=== PATIENT | female | born 1995 | race Two or more races ===

== ENCOUNTER 2017-05-09 20:29 | Emergency (ER) | payer SELFPAY ==
[~2017-05-09] VITALS: Ht 154.9 cm; Wt 72.6 kg
--- NOTE | 2017-05-09 22:10 | Diagnostic Imaging Report ---
CHEST 2 VIEWS, Technique: CHEST 2 VIEWS Comparison: None Clinical history: Chest pain DISCUSSION: Unremarkable appearance of the heart, mediastinum, lungs and pleural spaces. IMPRESSION: No acute abnormality. Signed by: Dr Sally Vicente MD on 05/09/2017 10:06 PM
[2017-05-09 23:40] VITALS: BP 134/52
== END 2017-05-09 23:41 | disposition home or self-care (01) ==
LOC: ER 20:29
DX: M94.0 Chondrocostal junction syndrome [Tietze] (principal)
CPT/HCPCS: 71020; 93005; 99283

== ENCOUNTER 2018-04-18 10:37 | Inpatient (IN) | payer BC, OTHER ==
[~2018-04-18] VITALS: Ht 152.4 cm; Wt 92.2 kg
--- OUTSIDE RECORDS SUMMARY | 2018-04-18 10:39 | XMS REPORT ---
Author Author [facility] Address Unknown Phone Unavailable Care Team Providers Care Supervisory Civil Engineer Name Role Phone Mariangel SÁNCHEZ Unavailable Unavailable Problems This patient has no known problems. Allergies, Adverse Reactions, Alerts This patient has no known allergies or adverse reactions. Medications This patient has no known medications. Results Test Description Test Time Test Comments Text Results Atomic Results Result Comments CHEST 2 VIEWS [place] [address] Patient Name: LISA WEAVER MR #: [id number] : 1995 Age/Sex: 22/F Req #: [id number] Adm Physician: Ordered by: NICOL SÁNCHEZ MD Report #: [id number] Location: ER Room/Bed: Procedure: [id number] DX/CHEST 2 VIEWS Exam Date: 05/09/17 Exam Time: 2139 REPORT STATUS: Signed CHEST 2 VIEWS, Technique: CHEST 2 VIEWS Comparison: None Clinical history: Chest pain DISCUSSION: Unremarkable appearance of the heart, mediastinum, lungs and pleural spaces. IMPRESSION: No acute abnormality. Signed by: Dr Harini Vicente MD on 05/09/2017 10:06 PM Dictated By: HARINI VICENTE MD 05 Transcribed By: PARRIS on 05/09/172205 COPY TO: NICOL SÁNCHEZ MD
[2018-04-18] MEDS ORDERED: SODIUM CHLORIDE 0.9% 1000ML 1,000 ML IV STA (11:05)
[2018-04-18] MEDS ORDERED: KETOROLAC TROMETHAMINE 30 MG/ML VIAL IV NR (11:11)
[2018-04-18] MEDS ORDERED: METOCLOPRAMIDE HCL 10 MG/2ML VIAL IV NR (11:15)
[2018-04-18] MEDS ORDERED: DIPHENHYDRAMINE HCL INJ 50 MG/ML VIAL IV NR (11:15)
[2018-04-18 11:47] LABS: BASOPHILS % 0.3 % (0.0-1.0); EOSINOPHILS % 0.1 % (0.0-6.0); HEMOGLOBIN 12.2 g/dL (12.0-16.0); LYMPHOCYTES # (AUTO) 1.1 (1.0-3.2); LYMPHOCYTES % 7.6 % (18.0-39.1); MEAN CORPUSCULAR HEMOGLOBIN 26.7 pg (28-32); MONOCYTES # (AUTO) 1.2 (0.2-0.8); MONOCYTES % 8.1 % (4.4-11.3); NEUTROPHILS # (AUTO) 11.8 (2.1-6.9); NEUTROPHILS % 83.5 % (38.7-80.0); PLATELET COUNT 270 x10e3/uL (140-360); RED BLOOD COUNT 4.57 x10e6/uL (3.6-5.1); RED CELL DISTRIBUTION WIDTH 13.3 % (11.7-14.4)
[2018-04-18 11:55] LABS: COLOR,URINE YELLOW (YELLOW)
[2018-04-18 11:56] LABS: BILIRUBIN,URINE NEGATIVE (NEGATIVE); CLARITY,URINE CLOUDY (CLEAR); KETONES,URINE NEGATIVE (NEGATIVE); LEUKOCYTE ESTERASE ,URINE 1+ (NEGATIVE); NITRITE,URINE POSITIVE (NEGATIVE); PROTEIN,URINE DIPSTICK 1+ (NEGATIVE); URINE UROBILINOGEN 0.2 mg/dL (0.2 - 1)
[2018-04-18 12:06] LABS: ALANINE AMINOTRANSFERASE 19 IU/L (0-55); ALBUMIN 3.6 g/dL (3.5-5.0); ALBUMIN/GLOBULIN RATIO 0.9 (0.8-2.0); ALKALINE PHOSPHATASE 68 IU/L (40-150); ANION GAP 12.5 mmol/L (8-16); BLOOD UREA NITROGEN 13 mg/dL (7-26); BUN/CREATININE RATIO 14 (6-25); CALCIUM 9.4 mg/dL (8.4-10.2); CARBON DIOXIDE 24 mmol/L (22-29); CHLORIDE 102 mmol/L (98-107); CREATININE, SERUM 0.95 mg/dL (0.57-1.11); EST GLOMERULAR FILTRATION RATE > 60 ML/MIN (60-); GLUCOSE 110 mg/dL (74-118); POTASSIUM 3.5 mmol/L (3.5-5.1); SODIUM 135 mmol/L (136-145)
[2018-04-18 12:08] LABS: BACTERIA,URINE FEW /HPF; EPITHELIAL CELLS,URINE FEW /LPF
[2018-04-18] MEDS ORDERED: CEFTRIAXONE SOD 1 GM VIAL IM ONE (12:45)
[2018-04-18] MEDS ORDERED: ACETAMINOPHEN 325 MG TAB PO ONE ×2 (13:45→22:00)
[2018-04-18] MEDS: SODIUM CHLORIDE 0.9% 1000ML 1,000 ML IV SCH ×3 (13:49→21:22)
[2018-04-18] MEDS ORDERED: IBUPROFEN 400 MG TAB PO ONE (14:45)
[2018-04-18] MEDS ORDERED: SODIUM CHLORIDE 0.9% 1000ML 1,000 ML IV SCH (14:45)
[2018-04-18] MEDS ORDERED: LEVOFLOXACIN 750MG/D5W 150ML 150 ML IV ONE ×2 (15:59→21:45)
--- NOTE | 2018-04-18 17:30 | Diagnostic Imaging Report ---
EXAM: CT Abdomen and Pelvis WITH contrast INDICATION: ^lower abdominal pain ^[id number] ^1640 ^Y COMPARISON: None. TECHNIQUE: Abdomen and pelvis were scanned utilizing a multidetector helical scanner from the lung base to the pubic symphysis after administration of IV contrast. Coronal and sagittal reformations were obtained. Dose modulation, iterative reconstruction, and/or weight based adjustment of the mA/kV was utilized to reduce the radiation dose to as low as reasonably achievable. Routine protocol was performed. Scan was performed when during portal venous phase. IV CONTRAST: 100 mL of Isovue-370 ORAL CONTRAST: Water COMPLICATIONS: None RADIATION DOSE: Total DLP: 713.45 mGy*cm Estimated effective dose: (DLP x 0.015 x size factor) mSv CTDIvol has been reviewed. It is below the limits set by the Radiation Protocol Committee (RPC). FINDINGS: LINES and TUBES: Right nephroureteral stent. LOWER THORAX: Unremarkable HEPATOBILIARY: No focal hepatic lesions. No biliary ductal dilation. GALLBLADDER: No radio-opaque stones or sludge. No wall thickening. SPLEEN: No splenomegaly. PANCREAS: No focal masses or ductal dilatation. ADRENALS: No adrenal nodules KIDNEYS/URETERS: Right nephroureteral stent in place. Cluster of right renal inferior pole calculi, overall measuring 1.4 cm (series 301, image 68). Additional right inferior pole renal calculus measuring 0.9 cm. Proximal right ureteral 1 cm calculus. Left inferior pole 0.3 cm calculus. Mild to moderate bilateral hydroureteronephrosis. There is mild right perinephric fat stranding and a striated nephrogram. Bilateral cortical hypodensities which are too small to characterize. GI TRACT: No abnormal distention, wall thickening, or evidence of bowel obstruction. Appendix is normal. PELVIC ORGANS/BLADDER: Unremarkable. LYMPH NODES: 1.3 cm aortocaval lymph node (series 2, image 48). Otherwise, no lymphadenopathy. VESSELS: Unremarkable. PERITONEUM / RETROPERITONEUM: No free air or fluid. BONES: Unremarkable. SOFT TISSUES: Unremarkable. IMPRESSION: 1. Right nephroureteral stent in place. Bilateral mild to moderate hydroureteronephrosis. 2. Bilateral renal calculi, right more than left, with addition of 1 cm right proximal ureteral calculus. 3. Striated right nephrogram with mild right perinephric fat stranding, concerning for pyelonephritis. Signed by: Dr. Neeraj Robertson MD on 04/18/2018 5:27 PM
[2018-04-18 19:00] VITALS: BP 122/80
[2018-04-18] MEDS ORDERED: ONDANSETRON HCL INJ 2 MG/ML VIAL IV PRN ×2 (19:00→19:15)
--- NOTE | 2018-04-18 19:04 | History and Physical ---
CHIEF COMPLAINT: Nausea, vomiting, high-grade fever, right flank pain since yesterday. HISTORY OF PRESENT MEDICAL ILLNESS: A 23-year-old pleasant white female with past medical history of bilateral nephrolithiasis and mild to moderate hydronephrosis was admitted at [facility] today with the above complaints. Patient had a right ureteral stent put in for nephrolithiasis and hydronephrosis on April 08, 2018, by urologist Dr. Kelly. As per patient, since yesterday she started spiking fever with chills and associated with nausea, vomiting, right flank pain. Not getting better; and, hence, patient came to the ER today. In the emergency room patient was seen by emergency room doctor. Given IV fluids, IV antibiotics Levaquin and Rocephin, and admitted for further care and treatment. At present patient lying comfortably in bed in no apparent distress. No chest pain, no shortness of breath. No nausea, vomiting, diarrhea at present. No abdominal pain. No loss of consciousness, no palpitations, no headaches. No hematemesis, no melena, no hematuria, no dysuria. No witnessed seizures. PAST MEDICAL HISTORY: Bilateral nephrolithiasis with bilateral mild to moderate hydronephrosis with a recent right ureteral stent placement. MEDICATIONS: None. ALLERGIES: NO KNOWN DRUG ALLERGIES. SOCIAL HISTORY: No smoking, no alcohol, no illicit drug use. Lives with family. FAMILY HISTORY: Noncontributory. REVIEW OF SYSTEMS: As per history of present illness. PHYSICAL EXAM: GENERAL: The patient is alert, awake, oriented x3, in no apparent distress. Lying in bed. VITALS: T-max was 103.8 on admission to ER. Right now temperature is 100.3 F. Pulse is 90 per minute. Respiratory rate is 16 per minute. Blood pressure is 99/65. Saturation is 98%. HEENT: No cyanosis, no icterus, no pallor. Normocephalic, atraumatic. PERRLA plus. NECK: Soft, supple. No JVD, no carotid bruit, no lymphadenopathy. LUNGS: Air entry bilaterally equal. No rales, no rhonchi. HEART: No murmur, no rub. ABDOMEN: Soft, nontender. Bowel sounds plus. EVENT SET UP SPECIALIST: Alert, awake, oriented x3. No focal deficit. EXTREMITIES: No cyanosis, no clubbing, no edema. Peripheral pulses present. No calf pain. LABS: On admission to ER white count 14.13, hemoglobin 12.2, hematocrit 37, platelets 270. Sodium 135, potassium 3.5, chloride 102, bicarb 30, and creatinine 0.9. LFTs noted. Urine shows blood 3+, leukocyte esterase 1+, RBC 11 to 20, WBC 6 to 10. DIAGNOSTIC STUDIES: CT abdomen and pelvis shows 1. Right nephroureteral stent in place, bilateral mild to moderate hydroureteronephrosis. 2. Bilateral renal calculi, right more than left with the addition of 1 cm right proximal ureteral calculus. 3. Striated right nephrogram with mild right perinephric flattening concerning for pyelonephritis. ASSESSMENT: Sepsis likely due to pyelonephritis, urinary tract infection, status post right ureteral stent placement. PLAN: Admit patient to telemetry medicine. IV fluid normal saline at 125 mL an hour. Rocephin 1 gram IV piggyback q.12 hours. Pancultures, blood cultures, urine cultures. Tylenol 650 mg p.o. q.6 hours p.r.n. Urology consultation with Dr. Kelly. He is aware about the patient. ID consultation with Dr. Reyes. Further care and treatment as per clinical course of patient in the hospital. Discussed with patient in detail. Prognosis and condition guarded. Job#: [id number] EV
[2018-04-18] MEDS: CEFTRIAXONE SOD 1 GM VIAL IV SCH (19:15)
[2018-04-18] MEDS ORDERED: MORPHINE SULFATE 2 MG/ML SYR IV PRN (19:15)
[2018-04-18] MEDS ORDERED: MORPHINE SULFATE INJ 4 MG/ML INJ IV PRN (19:15)
[2018-04-18] MEDS ORDERED: IOPAMIDOL 370 MG/ML 200 ML INFUS..BTL INJ ONE (22:42)
[2018-04-18] MEDS ORDERED: SODIUM CHLORIDE 0.9% 50ML 50 ML ONE (22:42)
[2018-04-19] VITALS (7 sets, daily range): BP systolic 108–126; BP diastolic 65–78
[2018-04-19] MEDS: SODIUM CHLORIDE 0.9% 1000ML 1,000 ML IV SCH ×2 (03:07→12:03)
[2018-04-19] MEDS: CEFTRIAXONE SOD 1 GM VIAL IV SCH ×2 (05:02→18:39)
[2018-04-19 05:40] LABS: BASOPHILS % 0.2 % (0.0-1.0); EOSINOPHILS % 0.3 % (0.0-6.0); LYMPHOCYTES # (AUTO) 0.9 (1.0-3.2); LYMPHOCYTES % 7.6 % (18.0-39.1); MEAN CORPUSCULAR HEMOGLOBIN 26.7 pg (28-32); MEAN CORPUSCULAR HGB CONC 31.3 g/dL (31-35); MEAN CORPUSCULAR VOLUME 85.6 fL (81-99); MONOCYTES # (AUTO) 0.8 (0.2-0.8); NEUTROPHILS # (AUTO) 9.6 (2.1-6.9); NEUTROPHILS % 84.5 % (38.7-80.0); PLATELET COUNT 185 x10e3/uL (140-360); RED BLOOD COUNT 3.74 x10e6/uL (3.6-5.1); RED CELL DISTRIBUTION WIDTH 13.3 % (11.7-14.4)
[2018-04-19] MEDS: MORPHINE SULFATE 2 MG/ML SYR IV PRN ×3 (05:51→16:50)
[2018-04-19 06:12] LABS: ALANINE AMINOTRANSFERASE 13 IU/L (0-55); ALBUMIN 2.4 g/dL (3.5-5.0); ALBUMIN/GLOBULIN RATIO 0.6 (0.8-2.0); ALKALINE PHOSPHATASE 58 IU/L (40-150); ANION GAP 18.5 mmol/L (8-16); BLOOD UREA NITROGEN 8 mg/dL (7-26); BUN/CREATININE RATIO 10 (6-25); CARBON DIOXIDE 16 mmol/L (22-29); CHLORIDE 109 mmol/L (98-107); CREATININE, SERUM 0.78 mg/dL (0.57-1.11); EST GLOMERULAR FILTRATION RATE > 60 ML/MIN (60-); GLUCOSE 109 mg/dL (74-118); POTASSIUM 3.5 mmol/L (3.5-5.1); SODIUM 140 mmol/L (136-145)
--- NOTE | 2018-04-19 08:56 | Diagnostic Imaging Report ---
PROCEDURE: X-RAY CHEST, TWO VIEWS COMPARISON: 05/09/2017. INDICATIONS: FEVER, NAUSEA/ VOMITING FINDINGS: Lung volumes are low without focal consolidation, pleural effusion, or pneumothorax. Cardiomediastinal contour and pulmonary vasculature are within normal limits. No acute osseous abnormality. Right internal ureteral stent is partially visualized on the lateral radiograph. CONCLUSION: Low lung volumes without acute cardiopulmonary abnormality.. Dictated by: Cheo Hernandez M.D. on 04/19/2018 at 9:06 Electronically approved by: Cheo Hernandez M.D. on 04/19/2018 at 9:06
[2018-04-19] MEDS ORDERED: VANCOMYCIN 1GM/NS 250 ML 250 ML IV SCH (16:30)
[2018-04-19] MEDS: VANCOMYCIN HCL 1.25 GM in SODIUM CHLORIDE 0.9% 250ML 250 ML IV SCH (16:50)
--- NOTE | 2018-04-19 18:26 | Consultation ---
DATE OF CONSULTATION: April 19, 2018 INFECTIOUS DISEASE CONSULTATION REASON FOR CONSULTATION: Sepsis, pyelonephritis. HISTORY OF PRESENT ILLNESS: This is a patient who is a very pleasant 23-year-old female who has history of obesity, history of renal stone. She recently was seen by Dr. Kelly, had stent placement on April 08. The patient has history of nephrolithiasis and hydronephrosis. The patient had a stent placement. She is coming with fever and chills and right flank pain. Patient was admitted, started on IV antibiotic. PAST MEDICAL HISTORY: Bilateral nephrolithiasis, bilateral mild to moderate hydronephrosis, obesity. Recently she had right ureteral stent placement. ALLERGIES: NKA. SOCIAL HISTORY: There is no smoking, drug abuse, alcohol abuse. FAMILY HISTORY: Otherwise unremarkable. REVIEW OF SYSTEMS: HEENT: Negative. PULMONARY: Negative. CARDIAC: Negative. : Negative. PHYSICAL EXAMINATION: GENERAL: She is currently alert, oriented, does not seem to be in acute distress. VITALS: Stable. Currently afebrile. HEENT: She does not appear icteric. NECK: Supple. CHEST: Clear bilaterally. HEART: S1 and S2. No S3, no S4, no murmur. ABDOMEN: Soft, obese. Her urine culture is showing coagulase-negative staph. IMPRESSION: 1. Urinary tract infection. 2. Pyelonephritis. 3. Sepsis. Agree with Rocephin for the time being. Will add vancomycin. Will get a trough with the 1st dose. Await the blood cultures. Await urine cultures. Will follow with you. Recheck CBC. Recheck chem panel. Job#: [id number] EV
[2018-04-19] MEDS: ACETAMINOPHEN 325 MG TAB PO PRN (19:02)
[2018-04-20] VITALS (8 sets, daily range): BP systolic 117–133; BP diastolic 60–92
[2018-04-20] MEDS: CEFTRIAXONE SOD 1 GM VIAL IV SCH ×2 (05:42→17:11)
[2018-04-20] MEDS: VANCOMYCIN HCL 1.25 GM in SODIUM CHLORIDE 0.9% 250ML 250 ML IV SCH ×2 (05:42→17:11)
[2018-04-20] MEDS: ACETAMINOPHEN 325 MG TAB PO PRN (09:30)
[2018-04-20] MEDS: SODIUM CHLORIDE 0.9% 1000ML 1,000 ML IV SCH (20:30)
[2018-04-21 04:00] VITALS: BP 122/76
[2018-04-21] MEDS: SODIUM CHLORIDE 0.9% 1000ML 1,000 ML IV SCH (04:30)
[2018-04-21 04:53] VITALS: BP 125/79
[2018-04-21] MEDS: CEFTRIAXONE SOD 1 GM VIAL IV SCH (06:18)
[2018-04-21] MEDS: VANCOMYCIN HCL 1.25 GM in SODIUM CHLORIDE 0.9% 250ML 250 ML IV SCH (06:18)
[2018-04-21 07:50] VITALS: BP 112/57
== END 2018-04-21 10:55 | disposition home or self-care (01) | DRG 871 ==
LOC: ER 10:37 → ERHOLD 20:24 → MED/SURG2 04-19 18:18
PROVIDERS: ADMIT Internal Medicine; ATTEND Internal Medicine
DX: A41.9 Sepsis, unspecified organism (principal); R65.21 Severe sepsis with septic shock; N13.6 Pyonephrosis
CPT/HCPCS: 36415; 71046; 74177; 80053; 80202; 81001; 83518; 83605; 84702; 85025; 87040; 87070; 87086; 87186; 87400; 99284; J0696; J1200; J1885; J2270; J2405; J2765; J3370; J7030; J7050; Q9967

== ENCOUNTER 2018-07-04 10:24 | Inpatient (IN) | payer BC ==
[~2018-07-04] VITALS: Ht 152.4 cm; Wt 85.7 kg
--- NOTE | 2018-07-04 11:05 | NUR ---
DR. SÁNCHEZ AT BEDSIDE EVALUATING PATIENT
[2018-07-04 11:37] LABS: BASOPHILS % 0.3 % (0.0-1.0); EOSINOPHILS # (AUTO) 0.2 (0.0-0.4); EOSINOPHILS % 1.6 % (0.0-6.0); HEMATOCRIT 33.9 % (34.2-44.1); HEMOGLOBIN 10.9 g/dL (12.0-16.0); LYMPHOCYTES # (AUTO) 1.8 (1.0-3.2); LYMPHOCYTES % 17.2 % (18.0-39.1); MEAN CORPUSCULAR HEMOGLOBIN 25.2 pg (28-32); MEAN CORPUSCULAR HGB CONC 32.2 g/dL (31-35); MEAN CORPUSCULAR VOLUME 78.5 fL (81-99); MONOCYTES # (AUTO) 0.6 (0.2-0.8); MONOCYTES % 5.8 % (4.4-11.3); NEUTROPHILS # (AUTO) 7.7 (2.1-6.9); NEUTROPHILS % 74.7 % (38.7-80.0); PLATELET COUNT 301 x10e3/uL (140-360); RED BLOOD COUNT 4.32 x10e6/uL (3.6-5.1)
[2018-07-04 11:38] LABS: COLOR,URINE YELLOW (YELLOW)
[2018-07-04 11:39] LABS: BILIRUBIN,URINE NEGATIVE (NEGATIVE); CLARITY,URINE CLOUDY (CLEAR); KETONES,URINE NEGATIVE (NEGATIVE); LEUKOCYTE ESTERASE ,URINE 2+ (NEGATIVE); NITRITE,URINE POSITIVE (NEGATIVE); PROTEIN,URINE DIPSTICK 2+ (NEGATIVE); URINE UROBILINOGEN 0.2 mg/dL (0.2 - 1)
[2018-07-04 11:40] LABS: PREGNANCY TEST, URINE NEGATIVE (NEGATIVE)
[2018-07-04 11:55] LABS: ANION GAP 12.4 mmol/L (8-16); BLOOD UREA NITROGEN 10 mg/dL (7-26); BUN/CREATININE RATIO 12 (6-25); CALCIUM 9.4 mg/dL (8.4-10.2); CARBON DIOXIDE 27 mmol/L (22-29); CHLORIDE 104 mmol/L (98-107); CREATININE, SERUM 0.86 mg/dL (0.57-1.11); EST GLOMERULAR FILTRATION RATE > 60 ML/MIN (60-); GLUCOSE 97 mg/dL (74-118); POTASSIUM 3.4 mmol/L (3.5-5.1); SODIUM 140 mmol/L (136-145)
[2018-07-04 12:04] LABS: BACTERIA,URINE FEW /HPF; EPITHELIAL CELLS,URINE MODERATE /LPF; WBC,URINE (MAN) 21-50 /HPF (0-5)
[2018-07-04 12:05] LABS: TRANSITIONAL EPI CELLS,URINE RARE
--- NOTE | 2018-07-04 12:49 | Diagnostic Imaging Report ---
Exam: KUB - 1 view Clinical History: Evaluate ureteral stent. Comparison: CT Abdomen/Pelvis 04/18/2018. Findings: Part of the upper abdomen is excluded from the radiograph. There is a right-sided ureteral stent with proximal aspect overlying the expected location of the right renal pelvis and distal aspect overlying the bladder. There is a 5 mm stone overlying the right lower pole kidney and multiple right ureteral stones measuring 4 mm and 6 mm in the proximal portion, an additional 4 mm stone in the proximal portion more distally, and a 5 mm stone in the midportion. There is a 4 mm calcification overlying the left lower pole kidney. Nonobstructive bowel gas pattern. No acute osseous abnormality. Impression: Right-sided internal ureteral stent in place. Bilateral renal and right ureteral stones as above. Signed by: Dr. Temo Manley MD on 07/04/2018 12:46 PM
[2018-07-04] MEDS: HYDROMORPHONE 2MG/ML 2 MG/ML ML IV PRN ×2 (13:23→20:30)
[2018-07-04] MEDS: CEFTRIAXONE SOD 1 GM/NS 50 ML 50 ML IV SCH (13:23)
[2018-07-04] MEDS: ONDANSETRON HCL INJ 2MG/ML 2ML 2 MG/ML VIAL IV PRN ×2 (13:23→21:20)
--- NOTE | 2018-07-04 13:45 | NUR ---
DR. CUENCA IN E.R. EVALUATING PATIENT
[2018-07-04] MEDS: SODIUM CHLORIDE 0.9% 1000ML 1,000 ML IV SCH ×2 (14:11→23:26)
--- NOTE | 2018-07-04 14:15 | NUR ---
ULTRASOUND RENAL COMPLETED AT BEDSIDE
--- NOTE | 2018-07-04 14:28 | History and Physical ---
CHIEF COMPLAINT: Right-sided flank pain since last few days worsening, and hence the patient came to ER. HISTORY OF PRESENT ILLNESS: A 23-year-old pleasant white female with a past medical history of nephrolithiasis, recurrent UTI was admitted at [facility] this morning with the above complaints. As per the patient, the patient had right ureteral stent placed by urologist, Dr. Kelly in May 12. Patient had an appointment on June 17, 2018, to remove the stent. Patient missed the appointment. Patient started having right flank pain since last few days ago. Progressively worsening and hence the patient came to the ER. In the emergency room, the patient was diagnosed with completed UTI, nephrolithiasis and possibly ureteric stent infection. The patient was admitted for further care and treatment. As present, the patient is lying comfortably in bed. No apparent distress. No chest pain. No shortness of breath. No nausea, vomiting or diarrhea. No abdominal pain. No loss of consciousness. No palpitations. No headaches. No hematemesis. No melena. No hematuria or dysuria. No fever. No cough. No witnessed seizures. PAST MEDICAL HISTORY: Bilateral nephrolithiasis with bilaterally mild to moderate hydronephrosis with recent right ureteral stent placement. MEDICATIONS: None. ALLERGIES: NO KNOWN DRUG ALLERGIES. SOCIAL HISTORY: No smoking. No alcohol. No illicit drug use. Lives with family. FAMILY HISTORY: Noncontributory. REVIEW OF SYSTEMS: As per HPI. PHYSICAL EXAMINATION GENERAL: Patient is alert, awake and oriented times 3. No apparent distress. Lying in bed. VITALS: Temperature is 98, pulse is 80 per minute, respiratory rate 16 per minute, blood pressure 120/80, saturation 100%. SKIN: No icterus. No pallor. HEENT: Normocephalic and atraumatic. PERRLA. NECK: Soft and supple. No JVD. No lymphadenopathy. LUNGS: Air entry bilateral. HEART: No murmur or gallop. ABDOMEN: Soft and nontender. Bowel sounds plus. TANK FARM GAUGER: Alert, awake and oriented times 3. No focal deficit. Right-sided flank tenderness plus. LABS: On admission to ER, white count 10.3, hemoglobin 10.9, hematocrit 33.9, and platelets 301,000. Sodium 140, potassium 3.4, chloride 104, bicarb 27, BUN 10, creatinine 0.8. Urine shows blood 2+, leukocyte esterase 2+, wbcs 21-50, bacteria few. Urine negative. X-ray of the abdomen shows right-sided internal ureteral stent in place. Bilateral renal and right ureteral stones. ASSESSMENT: Complicated urinary tract infection with nephrolithiasis and possible right ureteric stent infection. PLAN: Admit patient to the medical floor. Rocephin 1 g IVPB daily. IV fluids. Urology consultation with Dr. Kelly. He knows the patient from before. Gonzalez cultures. Further care of the patient while in the hospital. Discussed with the patient in detail. Job#: [id number] FRANCI
--- NOTE | 2018-07-04 14:56 | NUR ---
BLOOD CULTURES WERE ORDERED AFTER PATIENTS ANTIBIOTICS WERE GIVEN
--- NOTE | 2018-07-04 15:21 | Diagnostic Imaging Report ---
EXAM: Renal Ultrasound INDICATION: NEPHROLITHIASIS/HYDRONEPHROSIS COMPARISON: KUB 07/04/[address] Abdomen/Pelvis 04/18/2018. TECHNIQUE: Transverse and longitudinal images of the kidneys and bladder were obtained. FINDINGS: Right Kidney: Length: 10.8 x 5.4 x 4.4 cm Appearance: Normal echogenicity. Collecting system: Mild hydronephrosis Stones: There is a 6 mm echogenic focus in the inferior pole. Cyst/Mass: None Left Kidney: Length: 10.7 x 5.4 x 4.2 cm Appearance: Normal echogenicity. Collecting system: Mild hydronephrosis Stones: There is a 1.5 cm echogenic shadowing stone in the inferior pole. Cyst/Mass: None Bladder: The distal aspect of a ureteral stent is noted in the bladder. Bilateral ureteral jets are noted. IMPRESSION: Mild bilateral hydronephrosis. A 1.5 cm stone in the left inferior pole kidney and 6 mm stone in the right inferior pole kidney. Signed by: Dr. Temo Manley MD on 07/04/2018 3:18 PM
[2018-07-04 17:54] VITALS: BP 124/80
--- NOTE | 2018-07-04 18:00 | NUR ---
RECEIVED PT TO FLOOR [id number]. PT C/O PAIN TO RIGHT BACK FLANK AREA. STATES ITS A 10/31 . STATES PAIN IS TOLERABLE AT THIS TIME. MADE PT AWARE OF PRN PAIN MED AVAILABLE. PT IS ON IV FLUIDS WITH NS AT 125 TO THE RIGHT AC 20 . SITE IS CLEAN AND DRY. STRAINING URINE AT THIS TIME. WILL CONTINUE TO CARE FOR PT AT THIS TIME. INSTRUCTED TO CALL FOR ASSISTANCE IF NEEDED. CALL LIGHT IS AT BEDSIDE
--- NOTE | 2018-07-04 18:05 | NUR ---
SPOKE WITH MD ZAVALA STATES HE WILL SEE PT TOMORROW. PT CAN HAVE REG AT THIS TIME
[2018-07-04 18:12] VITALS: BP 124/84
[2018-07-04 18:18] VITALS: BP 124/80
[2018-07-04] MEDS ORDERED: HYDROMORPHONE 2MG/ML 2 MG/ML ML IV ONE (18:30)
[2018-07-04 20:00] VITALS: BP 119/56
[2018-07-04 23:00] VITALS: BP 116/62
[2018-07-05] VITALS (7 sets, daily range): BP systolic 97–124; BP diastolic 49–75
[2018-07-05] MEDS: SODIUM CHLORIDE 0.9% 1000ML 1,000 ML IV SCH ×3 (05:25→13:30)
[2018-07-05 06:47] LABS: BASOPHILS % 0.3 % (0.0-1.0); EOSINOPHILS # (AUTO) 0.2 (0.0-0.4); EOSINOPHILS % 2.9 % (0.0-6.0); HEMATOCRIT 33.6 % (34.2-44.1); HEMOGLOBIN 10.4 g/dL (12.0-16.0); LYMPHOCYTES # (AUTO) 1.9 (1.0-3.2); MEAN CORPUSCULAR HEMOGLOBIN 25.1 pg (28-32); MEAN CORPUSCULAR VOLUME 81.2 fL (81-99); MONOCYTES # (AUTO) 0.4 (0.2-0.8); MONOCYTES % 5.7 % (4.4-11.3); NEUTROPHILS % 65.8 % (38.7-80.0); PLATELET COUNT 291 x10e3/uL (140-360); RED BLOOD COUNT 4.14 x10e6/uL (3.6-5.1); RED CELL DISTRIBUTION WIDTH 12.9 % (11.7-14.4)
[2018-07-05 07:03] LABS: ALANINE AMINOTRANSFERASE 14 IU/L (0-55); ALBUMIN 2.9 g/dL (3.5-5.0); ALBUMIN/GLOBULIN RATIO 0.8 (0.8-2.0); ALKALINE PHOSPHATASE 61 IU/L (40-150); ANION GAP 10.6 mmol/L (8-16); BLOOD UREA NITROGEN 8 mg/dL (7-26); BUN/CREATININE RATIO 11 (6-25); CALCIUM 8.5 mg/dL (8.4-10.2); CARBON DIOXIDE 25 mmol/L (22-29); CHLORIDE 106 mmol/L (98-107); CREATININE, SERUM 0.75 mg/dL (0.57-1.11); EST GLOMERULAR FILTRATION RATE > 60 ML/MIN (60-); GLUCOSE 94 mg/dL (74-118); POTASSIUM 3.6 mmol/L (3.5-5.1); SODIUM 138 mmol/L (136-145)
--- NOTE | 2018-07-05 12:19 | NUR ---
TELEPHONED MD CUENCA PER PT REQUEST FOR "DRY COUGH", SPOKE WITH GURJIT, AWAITING CALL BACK
--- NOTE | 2018-07-05 13:27 | NUR ---
SOCIAL WORK INITIAL ASSESSMENT Chief Science Officer to bedside to discuss plan of care with patient/family. CM/SW role and care transitions discussed. Anticipated discharge plan discussed along with duration of care. CM/SW discussed patients right to make decisions in care. CM/SW work hours given. 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 Name and number was also written on the patients whiteboard. Patient verbalized understanding of discussion. CM will follow-up with ongoing discharge and transition of care needs.
[2018-07-05] MEDS: CEFTRIAXONE SOD 1 GM/NS 50 ML 50 ML IV SCH (13:30)
--- NOTE | 2018-07-05 14:30 | NUR ---
Visit made by the Spiritual Care Department Pastoral Visitor, Kiara Truong. Pt sleeping soundly and no family present. Pastoral Visitor left a card describing availability of unit coordinator and instructions on how to contact a unit coordinator. MONIQUE GUPTA Rn Lactation Consultant Spiritual Care Department O: [phone] Pager: [phone] ([phone] number calling from)
--- NOTE | 2018-07-05 16:00 | NUR ---
PT REPORTS LOW BACK PAIN , DENIES NEED FOR PAIN MEDICATION AT THIS TIME, REQUEST TO TAKE SHOWER, PCT ASSISTED TO WRAP IV AND GET IN SHOWER
[2018-07-05] MEDS: VANCOMYCIN 1GM/NS 250 ML 250 ML IV SCH (18:00)
--- NOTE | 2018-07-05 19:20 | NUR ---
REPORT TAKEN FROM AM RN.WALKING ROUNDS DONE.STABLE CONDITION.
[2018-07-05] MEDS ORDERED: BENZONATATE 100 MG CAP PO PRN (22:45)
--- NOTE | 2018-07-05 23:30 | NUR ---
ASSESSMENT DONE.NO RESP.DISTRESS.PAIN VOICE. MEDICATION GIVEN.HAS C/O DRY COUGH.CALL PLACED TO MD CUENCA.RECEIVED NEW ORDERS.IV FLUID INFUSING.BED ALARM ON.BED LOCKED AND IN LOWEST POSITION.PHONE AND CALL LIGHT WITHIN REACH.INSTRUCTED TO CALL FOR ASSISTANCE NEEDED.
[2018-07-05] MEDS: HYDROMORPHONE 2MG/ML 2 MG/ML ML IV PRN (23:50)
[2018-07-05] MEDS: ONDANSETRON HCL INJ 2MG/ML 2ML 2 MG/ML VIAL IV PRN (23:50)
[2018-07-06] VITALS (7 sets, daily range): BP systolic 109–141; BP diastolic 52–83
[2018-07-06] MEDS: SODIUM CHLORIDE 0.9% 1000ML 1,000 ML IV SCH ×3 (05:10→21:45)
[2018-07-06] MEDS: VANCOMYCIN 1GM/NS 250 ML 250 ML IV SCH ×2 (05:57→19:45)
[2018-07-06] MEDS ORDERED: IOPAMIDOL 610MG/1ML 300 MG/ML VIAL IV ONE (06:14)
--- NOTE | 2018-07-06 06:32 | NUR ---
PT OFF THE UNIT FOR PROCEDURE LITO STRETCHER LITO STABLE CONDITION.
--- NOTE | 2018-07-06 07:00 | NUR ---
REPORT GIVEN TO THE ONCOMING RN.
--- NOTE | 2018-07-06 07:47 | NUR ---
RECEIVED REPORT FROM PEDRO AT THIS TIME . PT HAS A RIGHT LITHOTRIPSY AND RIGHT STENT EXCHANGE, AND BILATERAL RETROGRADE. AWAITING FOR PT TO ARRIVE TO FLOOR
--- NOTE | 2018-07-06 08:08 | NUR ---
PT BACK FROM PROCEDURE AT THIS TIME. PT IS RESTING COMFORTABLY. FAMILY (MOM) AT BEDSIDE. PT IS IN NO S/S OF DISTRESS , DENIES PAIN. PT HAS A RIGHT AC 20 WITH NS AT 125. SITE IS CLEAN AND INTACT. CHANGED DIET TO REG AT THIS TIME. WILL CONTINUE TO CARE FOR PT AT THIS TIME. SIDE RAILSX2, BED WHEELS LOCKED,CALL LIGHT IS WITHIN EASY REACH, INSTRUCTED TO CALL FOR ASSISTANCE IF NEEDED
--- NOTE | 2018-07-06 08:14 | Operative Report ---
DATE OF PROCEDURE: July 06, 2018 PREOPERATIVE DIAGNOSES 1. Indwelling right ureteral stent. 2. Right hydronephrosis. 3. Right ureteral calculus, multiple. POSTOPERATIVE DIAGNOSES 1. Indwelling right ureteral stent. 2. Right hydronephrosis. 3. Right ureteral calculus, multiple. PROCEDURES 1. Cystourethroscopy with right stent removal (entirely separate procedure for encrusted right ureteral stent). 2. Right-sided ureteroscopy with laser lithotripsy (entirely separate procedure for diagnosis of right ureteral calculus). 3. Cystourethroscopy with insertion of a right indwelling ureteral stent (entirely separate procedure for diagnosis of right hydronephrosis). 4. Supervision of fluoroscopy for ureteroscopy portion. 5. Supervision of fluoroscopy for stent removal portion. 6. Interpretation of retrograde pyelography. INDICATIONS FOR PROCEDURE: Ms. Gaviria is a 23-year-old female patient admitted to the hospital after noncompliance, returning for stent removal. She had been placed on culture-specific antibiotic as an outpatient consisting of Macrobid and given culture-specific antibiotic vancomycin over 24 hours in the hospital as well as Rocephin. She and I had a long discussion regarding the alternatives, risks and benefits, including doing nothing, stent removal, stent change, the fact that the stent is a temporary interim device, ureteroscopy, laser lithotripsy. She voiced an understanding of the options, the alternatives, and the risks and benefits, and she elected to proceed with ureteroscopy and laser lithotripsy. PROCEDURE IN DETAIL: After informed consent was obtained, the patient was taken to the operative suite and placed supine on the table and underwent general anesthesia by the anesthesia service. She was placed in the dorsal lithotomy position. She was sterilely prepped and draped in the standard fashion for cystoscopy. A 22.5-Haitian cystoscope was inserted per urethra. A normal urethra was noted. Encrusted stent was seen extruding from the right ureteral orifice. A guidewire was inserted alongside it. It would not pass proximal to the mid-ureteral calculus. With the stent removed, the guidewire was advanced to the level of the renal pelvis. Under fluoroscopy, a ureteroscope was driven over this to the offending mid and proximal ureteral calculi. These were ablated with the 365 micron laser fiber until fragments were smaller than the wire. At this time, a 2nd safety wire was introduced. Flexible ureteroscope was driven to the level of the renal pelvis. The renal pelvis was mapped. All stones greater than 3 mm were ablated into fragments smaller than 1 to 2 mm. At this time, with no other fragment seen, the scope was slowly withdrawn. A 7 x 24 cm ureteral stent was deployed with a coil in the renal pelvis and a coil in the bladder. The string was tied outside the urethral meatus. The bladder was drained. The patient was awakened from anesthesia and transported to the recovery room in excellent condition. SUPERVISION OF FLUOROSCOPY AND INTERPRETATION OF RETROGRADE PYELOGRAPHY: I was present throughout the entire procedure and supervised the use of fluoroscopy for the ureteroscopy and stent removal portions. Retrograde pyelogram was performed with the ureteroscope revealing a dilated collecting system, hydronephrosis, interim removal of right renal calculi in the mid renal tamiko. Job#: [id number]
[2018-07-06] MEDS: CEFTRIAXONE SOD 1 GM/NS 50 ML 50 ML IV SCH (12:12)
[2018-07-06] MEDS ORDERED: ONDANSETRON HCL INJ 2MG/ML 2ML 2 MG/ML VIAL ONE (17:42)
[2018-07-06] MEDS ORDERED: DEXAMETHASONE SOD PHOS INJ 4 MG/ML VIAL ONE (17:42)
[2018-07-06] MEDS ORDERED: SEVOFLURANE INHAL SOLN 250 ML PEN BTL ONE (17:42)
[2018-07-06] MEDS ORDERED: PROPOFOL IV EMULSION 10 MG/ML 20 ML VIAL ONE (17:42)
[2018-07-06] MEDS ORDERED: LIDOCAINE HCL 2% LOCAL INJ 5 ML SDV VIAL INJ ONE (17:42)
[2018-07-06] MEDS ORDERED: MIDAZOLAM HCL 2 MG/2 ML VIAL ONE (18:02)
[2018-07-06] MEDS ORDERED: FENTANYL CITRATE/PF 100MCG/2 ML INJ ONE (18:02)
--- NOTE | 2018-07-06 19:00 | NUR ---
REPORT TAKEN FROM AM RN.WALKING ROUNDS DONE.NO IV ACEESS.
--- NOTE | 2018-07-06 21:00 | NUR ---
NEW IV STARTED TO LFA#20G.IV FLUID RUNNING .NO PAIN VOICED.NO RESP.DISTRESS.VOIDED ORANGE COLOURED URINE .BED LOCKED AND IN LOWEST POSITION.PHONE AND CALL LIGHT WITHIN REACH.INSTRUCTED TO CALL FOR ASSISTANCE NEEDED .
[2018-07-07] VITALS: BP 124/59
--- NOTE | 2018-07-07 03:00 | NUR ---
RESTING IN THE BED .STABLE CONDITION.
[2018-07-07 04:00] VITALS: BP 121/67
[2018-07-07] MEDS: SODIUM CHLORIDE 0.9% 1000ML 1,000 ML IV SCH (04:34)
[2018-07-07] MEDS: VANCOMYCIN 1GM/NS 250 ML 250 ML IV SCH (05:31)
[2018-07-07 06:04] LABS: BASOPHILS % 0.4 % (0.0-1.0); EOSINOPHILS % 0.4 % (0.0-6.0); HEMATOCRIT 32.3 % (34.2-44.1); HEMOGLOBIN 10.2 g/dL (12.0-16.0); LYMPHOCYTES # (AUTO) 2.7 (1.0-3.2); LYMPHOCYTES % 26.9 % (18.0-39.1); MEAN CORPUSCULAR HEMOGLOBIN 24.9 pg (28-32); MEAN CORPUSCULAR HGB CONC 31.6 g/dL (31-35); MONOCYTES # (AUTO) 0.5 (0.2-0.8); MONOCYTES % 4.7 % (4.4-11.3); NEUTROPHILS # (AUTO) 6.7 (2.1-6.9); NEUTROPHILS % 67.2 % (38.7-80.0); PLATELET COUNT 325 x10e3/uL (140-360); RED BLOOD COUNT 4.09 x10e6/uL (3.6-5.1); RED CELL DISTRIBUTION WIDTH 12.5 % (11.7-14.4)
[2018-07-07 06:30] LABS: ALANINE AMINOTRANSFERASE 14 IU/L (0-55); ALBUMIN 2.9 g/dL (3.5-5.0); ALKALINE PHOSPHATASE 58 IU/L (40-150); ANION GAP 11.7 mmol/L (8-16); BLOOD UREA NITROGEN 7 mg/dL (7-26); BUN/CREATININE RATIO 10 (6-25); CALCIUM 8.8 mg/dL (8.4-10.2); CARBON DIOXIDE 24 mmol/L (22-29); CHLORIDE 107 mmol/L (98-107); CREATININE, SERUM 0.72 mg/dL (0.57-1.11); EST GLOMERULAR FILTRATION RATE > 60 ML/MIN (60-); GLUCOSE 92 mg/dL (74-118); POTASSIUM 3.7 mmol/L (3.5-5.1); SODIUM 139 mmol/L (136-145)
--- NOTE | 2018-07-07 06:50 | NUR ---
REPORT GIVEN TO THE ONCOMING RN.WALKING ROUNDS DONE.STABLE CONDITION.
[2018-07-07] MEDS ORDERED: ACETAMINOPHEN 325 MG TAB PO PRN (08:15)
[2018-07-07 08:18] VITALS: BP 125/67
--- NOTE | 2018-07-07 08:51 | NUR ---
DELIA ARANA FOR MD MALDONADO. STATES PT IS OK TO GO HOME AT THIS TIME MD CUENCA OK DISCHARGE IF UROLOGY APPROVED WILL GET DC PAPER WORK AT THIS TIME
[2018-07-07] MEDS ORDERED: TYLENOL WITH C1 EACH PO (08:54)
[2018-07-07] MEDS ORDERED: NITROFURANTOIN100 MG PO (08:56)
[2018-07-07 09:15] VITALS: BP 125/67
--- NOTE | 2018-07-07 09:15 | NUR ---
DISCHARGE INSTRUCTIONS GIVEN AND PRESCRIPTIONS. PT VERBALIZED UNDERSTANDING. IV DC. PRESSURE DRESSING APPLIED AND TAPED. PT IS WAITING FOR RIDE AT THIS TIME
--- NOTE | 2018-07-07 10:30 | NUR ---
pt off unit to home via wheel chair
== END 2018-07-07 10:30 | disposition home or self-care (01) | DRG 660 ==
LOC: ER 10:24 → ERHOLD 13:25 → MED/SURG 17:49
PROVIDERS: ADMIT Internal Medicine; ATTEND Internal Medicine
PROC: 0TC68ZZ Extirpation of Matter from Right Ureter, Via Natural or Artificial Opening Endoscopic (ICD-10-PCS; 2018-07-06)
PROC: BT141ZZ Fluoroscopy of Kidneys, Ureters and Bladder using Low Osmolar Contrast (ICD-10-PCS; 2018-07-06)
PROC: 0TP98DZ Removal of Intraluminal Device from Ureter, Via Natural or Artificial Opening Endoscopic (ICD-10-PCS; principal; 2018-07-06 06:30)
PROC: 0T768DZ Dilation of Right Ureter with Intraluminal Device, Via Natural or Artificial Opening Endoscopic (ICD-10-PCS; 2018-07-06 06:30)
DX: N13.6 Pyonephrosis (principal); N20.1 Calculus of ureter; Z96.0 Presence of urogenital implants
CPT/HCPCS: 36415; 74018; 74420; 76770; 80048; 80053; 80202; 81001; 81025; 85025; 87040; 87086; 99284; J0696; J1100; J2001; J2250; J2405; J3370; J7030

== ENCOUNTER 2020-02-29 20:28 | Emergency (ER) | payer BC ==
[~2020-02-29] VITALS: Ht 154.9 cm; Wt 85.7 kg
[~2020-02-29 20:28] MED LIST: NITROFURANTOIN100 MG PO; TYLENOL WITH C1 EACH PO
[2020-02-29] MEDS ORDERED: SODIUM CHLORIDE 0.9% 1000ML 1,000 ML IV ONE (21:00)
[2020-02-29] MEDS ORDERED: ACETAMINOPHEN 325 MG TAB PO ONE (21:00)
[2020-02-29] MEDS ORDERED: CEFTRIAXONE SOD 1 GM/NS 50 ML 50 ML IV SCH (21:00)
--- NOTE | 2020-02-29 21:10 | Emergency Department Note ---
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 Historian: Patient Arrival Mode: Car Onset (how long ago): day(s) (1) Location: lower back Quality: pain, fever, chills Radiation: Reports non-radiation Severity: moderate Onset quality: sudden Duration (how long): day(s) (1) Timing of current episode: constant Progression: unchanged Chronicity: new Context: Reports recent illness (uti); Denies recent surgery, Denies recent travel, Denies trauma/injury Relieving factors: none Exacerbating factors: none Associated symptoms: Reports denies other symptoms Treatments prior to arrival: none Past Medical/Family History Physician Review I have reviewed the patient's past medical and family history. Any updates have been documented here. Past Medical History Recent Fever: No Clinical Suspicion of Infectio: No New/Unexplained Change in Ment: No Past Medical History: Kidney Stones Other Medical History: kidney stones Other Surgery: LITHOTRIPSY Social History Smoking Cessation: Never Smoker Counseling Performed: No Alcohol Use: None Any Illegal Drug Use: No Other Last Tetanus: CURRENT Any Pre-Existing Lines (PICC,: No Review of Systems Review of Systems Constitutional: Reports as per HPI EENTM: Reports no symptoms Cardiovascular: Reports no symptoms Respiratory: Reports no symptoms Gastrointestinal: Reports no symptoms Genitourinary: Reports as per HPI Musculoskeletal: Reports as per HPI Integumentary: Reports no symptoms Neurological: Reports no symptoms Psychological: Reports no symptoms Endocrine: Reports no symptoms Hematological/Lymphatic: Reports no symptoms Physical Exam Related Data Allergies: Coded Allergies: No Known Allergies (Unverified , 07/04/18) Triage Vital Signs Vital Signs Date Time Temp Pulse Resp B/P (MAP) Pulse Ox O2 Delivery O2 Flow Rate FiO2 02/29/20 20:45 103.2 138 18 120/76 98 Room Air Vital signs reviewed: Yes Physical Exam CONSTITUTIONAL Constitutional: Present well-developed, Present well-nourished HENT HENT: Present normocephalic, Present atraumatic, Present oropharynx clear/moist, Present nose normal HENT L/R: Present left ext ear normal, Present right ext ear normal EYES Eyes: Reports PERRL, Reports conjunctivae normal NECK Neck: Present ROM normal PULMONARY Pulmonary: Present effort normal, Present breath sounds normal CARDIOVASCULAR Cardiovascular: Present regular rhythm, Present heart sounds normal, Present capillary refill normal, Present tachycardia GASTROINTESTINAL Abdominal: Present soft, Present nontender, Present bowel sounds normal; Absent left CVA tenderness, Absent right CVA tenderness GENITOURINARY Genitourinary: Present exam deferred SKIN Skin: Present warm, Present dry MUSCULOSKELETAL Musculoskeletal: Present ROM normal NEUROLOGICAL Neurological: Present alert, Present oriented x 3, Present no gross motor or sensory deficits PSYCHOLOGICAL Psychological: Present mood/affect normal, Present judgement normal Results Laboratory Laboratory Laboratory Tests Test 02/29/20 21:15 02/29/20 20:33 Urine Color Yellow (YELLOW) Urine Clarity Cloudy (CLEAR) Urine pH 6 (5 - 7) Urine Specific [place] 1.020 (1.010-1.025) Urine Protein 2+ (NEGATIVE) Urine Glucose (UA) Negative (NEGATIVE) Urine Ketones 1+ (NEGATIVE) Urine Blood Moderate (NEGATIVE) Urine Nitrite Positive (NEGATIVE) Urine Bilirubin Negative (NEGATIVE) Urine Urobilinogen 0.2 mg/dL (0.2 - 1) Urine Leukocyte Esterase Large (NEGATIVE) Urine RBC 6-10 /HPF (0-5) Urine WBC 21-50 /HPF (0-5) Urine Epithelial Cells Few /LPF (NONE) Urine Transitional Epithelial Cells Moderate (NONE) Urine Bacteria Many /HPF (NONE) White Blood Count 12.21 x10e3/uL (4.8-10.8) Red Blood Count 4.79 x10e6/uL (3.6-5.1) Hemoglobin 13.2 g/dL (12.0-16.0) Hematocrit 39.7 % (34.2-44.1) Mean Corpuscular Volume 82.9 fL (81-99) Mean Corpuscular Hemoglobin 27.6 pg (28-32) Mean Corpuscular Hemoglobin Concent 33.2 g/dL (31-35) Red Cell Distribution Width 13.2 % (11.7-14.4) Platelet Count 245 x10e3/uL (140-360) Neutrophils (%) (Auto) 90.0 % (38.7-80.0) Lymphocytes (%) (Auto) 4.7 % (18.0-39.1) Monocytes (%) (Auto) 4.6 % (4.4-11.3) Eosinophils (%) (Auto) 0.0 % (0.0-6.0) Basophils (%) (Auto) 0.2 % (0.0-1.0) Neutrophils # (Auto) 11.0 (2.1-6.9) Lymphocytes # (Auto) 0.6 (1.0-3.2) Monocytes # (Auto) 0.6 (0.2-0.8) Eosinophils # (Auto) 0.0 (0.0-0.4) Basophils # (Auto) 0.0 (0.0-0.1) Absolute Immature Granulocyte (auto 0.06 x10e3/uL (0-0.1) Sodium Level 134 mmol/L (136-145) Potassium Level 3.5 mmol/L (3.5-5.1) Chloride Level 101 mmol/L (98-107) Carbon Dioxide Level 21 mmol/L (22-29) Anion Gap 15.5 mmol/L (8-16) Blood Urea Nitrogen 6 mg/dL (7-26) Creatinine 1.00 mg/dL (0.57-1.11) Estimat Glomerular Filtration Rate > 60 ML/MIN (60-) BUN/Creatinine Ratio 6 (6-25) Glucose Level 106 mg/dL (74-118) Lactic Acid Level 0.9 mmol/L (0.5-2.0) Calcium Level 9.5 mg/dL (8.4-10.2) Total Bilirubin 0.5 mg/dL (0.2-1.2) Aspartate Amino Transf (AST/SGOT) 11 IU/L (5-34) Alanine Aminotransferase (ALT/SGPT) 15 IU/L (0-55) Alkaline Phosphatase 68 IU/L (40-150) Total Protein 7.8 g/dL (6.5-8.1) Albumin 3.9 g/dL (3.5-5.0) Globulin 3.9 g/dL (2.3-3.5) Albumin/Globulin Ratio 1.0 (0.8-2.0) Lab results reviewed: Yes Assessment & Plan Medical Decision Making MDM pt who is with fever, low back pain and recent diagnosis of uti cbc,cmp,lactic acid,blood culture, urine culture, ua, ordered to eval for uti, sepsis, leukocytosis tylenol 975 mg po ordered rocephin 1 gram iv ordered ns 1 liter bolus iv ordered I SPOKE WITH DR HAYES 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, HAVE PT FOLLOW UP IN OFFICE AT 8 AM IN THE MORNING Reassessment Reassessment time: 22:22 Reassessment PT FEELS MUCH BETTER AND WANTS TO GO HOME Date Time Temp Pulse Resp B/P (MAP) Pulse Ox O2 Delivery O2 Flow Rate FiO2 02/29/20 22:21 99.8 108 16 116/74 99 Room Air Assessment & Plan Final Impression: (1) Fever (2) UTI (urinary tract infection) Depart Disposition: HOME, SELF-CARE Last Vital Signs Date Time Temp Pulse Resp B/P (MAP) Pulse Ox O2 Delivery O2 Flow Rate FiO2 02/29/20 20:45 103.2 138 18 120/76 98 Room Air Home Meds Reported Medications Nitrofurantoin Macrocrystal (NITROFURANTOIN) 100 Mg Capsule, 100 MG PO BID 07/07/18 Acetaminophen With Codeine (TYLENOL WITH CODEINE #3 TABLET) 1 Each Tablet, 300 MG PO Q4HR PRN for PAIN, TAB 07/07/18 Medications in the ED Ceftriaxone Sodium 50 ml @ 100 mls/hr Q24H IV ; Start 02/29/20 at 21:00; Stop 03/07/20 at 20:59; Status UNV Acetaminophen 975 mg ONCE ONCE PO ; Start 02/29/20 at 21:00; Stop 02/29/20 at 21:01; Status UNV Sodium Chloride 1,000 ml @ 999 mls/hr Q1H1M ONCE IV ; Start 02/29/20 at 21:00; Stop 02/29/20 at 22:00 NIRANJAN PATRICIO MD Feb 29, 2020 21:10
[2020-02-29 21:14] LABS: BASOPHILS % 0.2 % (0.0-1.0); HEMATOCRIT 39.7 % (34.2-44.1); HEMOGLOBIN 13.2 g/dL (12.0-16.0); LYMPHOCYTES # (AUTO) 0.6 (1.0-3.2); LYMPHOCYTES % 4.7 % (18.0-39.1); MEAN CORPUSCULAR HEMOGLOBIN 27.6 pg (28-32); MEAN CORPUSCULAR HGB CONC 33.2 g/dL (31-35); MEAN CORPUSCULAR VOLUME 82.9 fL (81-99); MONOCYTES # (AUTO) 0.6 (0.2-0.8); MONOCYTES % 4.6 % (4.4-11.3); PLATELET COUNT 245 x10e3/uL (140-360); RED BLOOD COUNT 4.79 x10e6/uL (3.6-5.1); RED CELL DISTRIBUTION WIDTH 13.2 % (11.7-14.4)
[2020-02-29 21:20] LABS: BILIRUBIN,URINE NEGATIVE (NEGATIVE); CLARITY,URINE CLOUDY (CLEAR); COLOR,URINE YELLOW (YELLOW); KETONES,URINE 1+ (NEGATIVE); LEUKOCYTE ESTERASE ,URINE LARGE (NEGATIVE); NITRITE,URINE POSITIVE (NEGATIVE); PROTEIN,URINE DIPSTICK 2+ (NEGATIVE); URINE UROBILINOGEN 0.2 mg/dL (0.2 - 1)
[2020-02-29 21:32] LABS: ALANINE AMINOTRANSFERASE 15 IU/L (0-55); ALBUMIN 3.9 g/dL (3.5-5.0); ALKALINE PHOSPHATASE 68 IU/L (40-150); ANION GAP 15.5 mmol/L (8-16); BLOOD UREA NITROGEN 6 mg/dL (7-26); BUN/CREATININE RATIO 6 (6-25); CALCIUM 9.5 mg/dL (8.4-10.2); CARBON DIOXIDE 21 mmol/L (22-29); CHLORIDE 101 mmol/L (98-107); EST GLOMERULAR FILTRATION RATE > 60 ML/MIN (60-); GLUCOSE 106 mg/dL (74-118); POTASSIUM 3.5 mmol/L (3.5-5.1); SODIUM 134 mmol/L (136-145)
--- OUTSIDE RECORDS SUMMARY | 2020-02-29 21:37 | XMS REPORT | Continuity of Care Document ---
Author Author [facility] t Organization [facility] Address [address] [place] [address] Phone Unavailable Care Team Providers Care Electrical Assembler Name Role Phone CORBY CUENCA MD PCP CORBY CUENCA Attphys Unavailable Mariangel SÁNCHEZ Attphys Unavailable CORBY CUENCA Admphys Unavailable Payers Payer Name Policy Type Policy Number Effective Date Expiration Date Jessica jacobo [facility] [id number] 2017 00:00:00 [facility] Problems This patient has no known problems. Allergies, Adverse Reactions, Alerts This patient has no known allergies or adverse reactions. Medications Ordered Medication Name Filled Medication Name Start Date Stop Da te Current Medication? Ordering Clinician Indication Dosage Frequency Signature (SIG) Comments Components Source Acetaminophen With Codeine (Tylenol With Codeine #3 Ta blet) 1 Each Tablet Acetaminophen With Codeine (Tylenol With Codeine #3 Tablet) 1 Each Tablet Yes 300 Every 4 Hours as needed for Pain [facility] Nitrofurantoin Macrocrystal (Nitrofurantoin) 100 Mg Ca psule Nitrofurantoin Macrocrystal (Nitrofurantoin) 100 Mg Capsule Yes 100 Twice A Day [facility] Procedures Procedure Date / Time Performed Performing Clinician [facility] e Cystoscopy with retrograde pyelography 2018-07-06 00:00:00 ARIELA VASQUEZ [facility] Ultrasound, renal 2018-07-04 00:00:00 CORBY CUENCA [facility] Computed tomography of abdomen and pelvis with contrast 2017 00:00:00 JONY PORTILLO [facility] X-ray of chest, two views 2018-04-18 00:00:00 ELYSE DOLAN [facility] Encounters Start Date/Time End Date/Time Encounter Type Admission Type [facility] Care Department Encounter ID Source 2018-07-04 13:25:00 2018-07-07 10:30:00 Discharged Inpatient 1 JOELLEN, [facility] [id number] [facility] 2018-04-18 20:24:00 2018-04-21 10:55:00 Discharged Inpatient 1 JOELLEN, [facility] [id number] [facility] Results Test Description Test Time Test Comments Results Result Comments Source Sodium Level 2018-07-07 06:34:00 Test Item Sodium Level (test code = 2951-2) 139 136-145 [facility] Lthyn3609-75-83 06:34:00* Test Item Value Reference Range Interpretation Comments Potassium Level (test code = 2823-3) 3.7 3.5-5.1 [facility] CenterChloride Dtemi0345-32-29 06:34:00* Test Item Value Reference Range Interpretation Comments Chloride Level (test code = 2075-0) 107 98-107 [facility] CenterCarbon Dioxide Mnihn7444-29-11 06:34:00* Test Item Value Reference Range Interpretation Comments Carbon Dioxide Level (test code = 2028-9) 24 22- [facility] CenterAnion Vve6641-68-46 06:34:00* Test Item Value Reference Range Interpretation Comments Anion Gap (test code = 42667-7) 11.7 8-16 [facility] CenterBlood Urea Kdqjkkpi1908-36-97 06:34:00* Test Item Value Reference Range Interpretation Comments Blood Urea Nitrogen (test code = 3094-0) 7 7-26 [facility] CenterCreatinine2019-02-14 06:34:00* Test Item Value Reference Range Interpretation Comments Creatinine (test code = 2160-0) 0.72 0.57-1.11 [facility] CenterBUN/Creatinine Swejs9841-40-22 06:34:00* Test Item Value Reference Range Interpretation Comments BUN/Creatinine Ratio (test code = 3097-3) 10 6-25 [facility] CenterEstimat Glomerular Filtration Rate 2018-07-07 06:34:00* Test Item Value Reference Range Interpretation Comments Estimat Glomerular Filtration Rate (test code = 060319716) > 60 >60 Ranges were taken from the National Kidney Disease Education Program and the [facility] literature.Reference ranges:60 or greater: Evwhzl54-67 ( for 3 consecutive months): Chronic kidney disease 15 or less: Kidney failureChildress Regional Medical CenterGlucose Oocyi8693-69-75 06:34:00* Test Item Value Reference Range Interpretation Comments Glucose Level (test code = SUE6450) 92 74-118 [facility] CenterCalcium Upacz4634-18-93 06:34:00* Test Item Value Reference Range Interpretation Comments Calcium Level (test code = 48395-4) 8.8 8.4-10.2 [facility] CenterTotal Girkvdsst2031-35-13 06:34:00* Test Item Value Reference Range Interpretation Comments Total Bilirubin (test code = 1975-2) 0.2 0.2-1.2 [facility] CenterAspartate Amino Transf (AST/SGOT) 2018-07-07 06:34:00* Test Item Value Reference Range Interpretation Comments Aspartate Amino Transf (AST/SGOT) (test code = Aspartate Amino Transf (AST/SGOT)) 9 5-34 [facility] CenterAlanine Aminotransferase (ALT/SGPT) 2018-07-07 06:34:00* Test Item Value Reference Range Interpretation Comments Alanine Aminotransferase (ALT/SGPT) (test code = 1742-6) 14 0-55 [facility] CenterTotal Alxpzha3215-22-72 06:34:00* Test Item Value Reference Range Interpretation Comments Total Protein (test code = 2885-2) 5.9 6.5-8.1 L [facility] CenterAlbumin2019-02-14 06:34:00* Test Item Value Reference Range Interpretation Comments Albumin (test code = 1751-7) 2.9 3.5-5.0 L [facility] CenterGlobulin2019-02-14 06:34:00* Test Item Value Reference Range Interpretation Comments Globulin (test code = 57051-1) 3.0 2.3-3.5 [facility] CenterAlbumin/Globulin Zpcto8681-82-45 06:34:00 * Test Item Value Reference Range Interpretation Comments Albumin/Globulin Ratio (test code = 1759-0) 1.0 0.8-2.0 [facility] CenterAlkaline Qunujddaojw4614-76-81 06:34:00* Test Item Value Reference Range Interpretation Comments Alkaline Phosphatase (test code = 6768-6) 58 40-150 [facility] CenterWhite Blood Wxitb0584-39-70 06:08:00* Test Item Value Reference Range Interpretation Comments White Blood Count (test code = 6690-2) 9.96 4.8-10.8 [facility] CenterRed Blood Spgds3448-45-42 06:08:00* Test Item Value Reference Range Interpretation Comments Red Blood Count (test code = 789-8) 4.09 3.6-5.1 [facility] CenterHemoglobin2019-02-14 06:08:00* Test Item Value Reference Range Interpretation Comments Hemoglobin (test code = 76270-9) 10.2 12.0-16.0 L [facility] CenterHematocrit2019-02-14 06:08:00* Test Item Value Reference Range Interpretation Comments Hematocrit (test code = 4544-3) 32.3 34.2-44.1 L [facility] CenterMean Corpuscular Efbmej9714-54-55 06:08:00* Test Item Value Reference Range Interpretation Comments Mean Corpuscular Volume (test code = 787-2) 79.0 81-99 L [facility] CenterMean Corpuscular Vfqcrmxhpx6647-65-01 06:08:00* Test Item Value Reference Range Interpretation Comments Mean Corpuscular Hemoglobin (test code = 785-6) 24.9 28-32 L [facility] CenterMean Corpuscular Hemoglobin Concent 2018-07-07 06:08:00* Test Item Value Reference Range Interpretation Comments Mean Corpuscular Hemoglobin Concent (test code = 786-4) 31.6 31-35 [facility] CenterRed Cell Distribution Kddmp2320-41-19 06:08:00* Test Item Value Reference Range Interpretation Comments Red Cell Distribution Width (test code = 39307-4) 12.5 11.7 -14.4 [facility] CenterPlatelet Vdbqs4111-96-31 06:08:00* Test Item Value Reference Range Interpretation Comments Platelet Count (test code = 777-3) 325 140-360 [facility] CenterNeutrophils (%) (Auto)2018-07-07 06:08:00 * Test Item Value Reference Range Interpretation Comments Neutrophils (%) (Auto) (test code = 40611-1) 67.2 38.7-80.0 [facility] CenterLymphocytes (%) (Auto)2018-07-07 06:08:00 * Test Item Value Reference Range Interpretation Comments Lymphocytes (%) (Auto) (test code = 736-9) 26.9 18.0-39.1 [facility] CenterMonocytes (%) (Auto)2018-07-07 06:08:00* Test Item Value Reference Range Interpretation Comments Monocytes (%) (Auto) (test code = 5905-5) 4.7 4.4-11.3 [facility] CenterEosinophils (%) (Auto)2018-07-07 06:08:00 * Test Item Value Reference Range Interpretation Comments Eosinophils (%) (Auto) (test code = 713-8) 0.4 0.0-6.0 [facility] CenterBasophils (%) (Auto)2018-07-07 06:08:00* Test Item Value Reference Range Interpretation Comments Basophils (%) (Auto) (test code = 706-2) 0.4 0.0-1.0 [facility] CenterIM GRANULOCYTES %2018-07-07 06:08:00* Test Item Value Reference Range Interpretation Comments IM GRANULOCYTES % (test code = IM GRANULOCYTES %) 0.4 0.0- 1.0 [facility] CenterNeutrophils # (Auto)2018-07-07 06:08:00* Test Item Value Reference Range Interpretation Comments Neutrophils # (Auto) (test code = 751-8) 6.7 2.1-6.9 [facility] CenterLymphocytes # (Auto)2018-07-07 06:08:00* Test Item Value Reference Range Interpretation Comments Lymphocytes # (Auto) (test code = 77960-7) 2.7 1.0-3.2 [facility] CenterMonocytes # (Auto)2018-07-07 06:08:00* Test Item Value Reference Range Interpretation Comments Monocytes # (Auto) (test code = 742-7) 0.5 0.2-0.8 [facility] CenterEosinophils # (Auto)2018-07-07 06:08:00* Test Item Value Reference Range Interpretation Comments Eosinophils # (Auto) (test code = 711-2) 0.0 0.0-0.4 [facility] CenterBasophils # (Auto)2018-07-07 06:08:00* Test Item Value Reference Range Interpretation Comments Basophils # (Auto) (test code = 704-7) 0.0 0.0-0.1 [facility] CenterAbsolute Immature Granulocyte (auto 2018-07-07 06:08:00* Test Item Value Reference Range Interpretation Comments Absolute Immature Granulocyte (auto (guillermina t code = Absolute Immature Granulocyte (auto) 0.04 0-0.1 [facility] CenterVancomycin Level Bveniu8397-79-85 18:44:00* Test Item Value Reference Range Interpretation Comments Vancomycin Level Trough (test code = 4092-3) 6.8 5.0-10.0 [facility] CenterBlood Vstaqyd8937-63-76 15:20:00* Test Item Value Reference Range Interpretation Comments Blood Culture (test code = 20019789) NO GROWTH AFTER 48 HOURS [facility] CenterUS RENAL RETROPERITONEAL EPQK1420-00-51 15:14:00 [place] [address] Patient Name: LISA WEAVER MR #: [id number] : 1995 Age/Sex: 23/F Req #: [id number] Adm Physician: CORBY CUENCA MD Ordered by: CORBY CUENCA MD Report #: [id number] Location: [facility] Room/Bed: [place] [address] Procedure: [id number] US/US RENAL RETROPERITONEAL COMP Exam Date: 07/04/18 Exam Time: 1412 REPORT STATUS: Signed EXAM: Renal Ultrasound INDICATION: NEPHROLITHIASIS/HYDRONEPHROSIS COMPARISON: KUB 07/04/[address] Abdomen/Pelvis 04/18/2018. TECHNIQUE: Tr ansverse and longitudinal images of the kidneys and bladder were obtained. FINDINGS: Right Kidney: Length: 10.8 x 5.4 x 4.4 cm Appearance: Normal echogenicity. Collecting system: Mild hydronephrosis Stones: There is a 6 mm echogenic focus in the inferior pole. Cyst/Mass: None Left Kidn ey: Length: 10.7 x 5.4 x 4.2 cm Appearance: Normal echogenicity. Collec ting system: Mild hydronephrosis Stones: There is a 1.5 cm echogenic shadowing stone in the inferior pole. Cyst/Mass: None Bladder: The distal aspect of a ureteral stent is noted in the bladder. Bilateral ureteral jets are not ed. IMPRESSION: Mild bilateral hydronephrosis. A 1.5 cm stone in the left inferior pole kidney and 6 mm stone in the right inferior pole kidney. Signed by: Dr. Dequan Bianchi MD on 07/04/2018 3:18 PM Dictated By: Jessica BIANCHI MD [id number] Transcri bed By: PARRIS on 07/04/18 2314 COPY TO: CORBY CUENCA MD ABDOMEN- 1VIEW (KUB)2018-07-04 12:42:00 [place] [address] Patient Name: LISA WEAVER MR #: [id number] : 1995 Age/Sex: 23/F Req #: [id number] Adm Physician: Ordered by: NICOL SÁNCHEZ MD Report #: [id number] Location: ER Room/Bed: Procedure: [id number] D X/ABDOMEN-1VIEW (KUB) Exam Date: 07/04/18 Exam Time: 1223 REPORT STATUS: Signed Exam: KUB - 1 view Clinical History: Evaluate ureteral stent. Comparison: CT Abdomen/Pelvis 04/18/2018. Findings: Part of the upper abdomen is exc luded from the radiograph. There is a right-sided ureteral stent with proxi mal aspect overlying the expected location of the right renal pelvis and dista l aspect overlying the bladder. There is a 5 mm stone overlying the right lowe r pole kidney and multiple right ureteral stones measuring 4 mm and 6 mm in th e proximal portion, an additional 4 mm stone in the proximal portion more dist ally, and a 5 mm stone in the midportion. There is a 4 mm calcification overly ing the left lower pole kidney. Nonobstructive bowel gas pattern. No acut e osseous abnormality. Impression: Right-sided internal ureteral stent in place. Bilateral renal and right ureteral stones as above. Signed by: Dr. Dequan Bianchi MD on 07/04/2018 12:46 PM Dictated By: DEQUAN BIANCHI MD Tiera ctronically Signed By: DEQUAN BIANCHI MD on 07/04/18 1246 Transcribed By: PARRIS jon 07/04/18 1246 COPY TO: NICOL SÁNCHEZ MD Urine EME3264-97-26 12:05:00* Test Item Value Reference Range Interpretation Comments Urine WBC (test code = 5821-4) 21-50 0-5 H [facility] CenterUrine XPL0754-89-18 12:05:00* Test Item Value Reference Range Interpretation Comments Urine RBC (test code = 25529-5) 11-20 0-5 H [facility] CenterUrine Gelrpwbs5536-09-48 12:05:00* Test Item Value Reference Range Interpretation Comments Urine Bacteria (test code = 99502-1) FEW NONE [facility] CenterUrine Epithelial Htltv2129-36-12 12:05:00 * Test Item Value Reference Range Interpretation Comments Urine Epithelial Cells (test code = 85364-3) MODERATE NONE [facility] CenterUrine Transitional Epithelial Cells 2018-07-04 12:05:00* Test Item Value Reference Range Interpretation Comments Urine Transitional Epithelial Cells (test code = 8249-5) RARE NONE [facility] Erpfu4984-13-33 11:40:00* Test Item Value Reference Range Interpretation Comments Urine Color (test code = 5778-6) YELLOW YELLOW [facility] CenterUrine Bkqsnia5727-65-12 11:40:00* Test Item Value Reference Range Interpretation Comments Urine Clarity (test code = 40935-3) CLOUDY CLEAR H [facility] CenterUrine Specific Swsgquc4796-10-32 11:40:00 * Test Item Value Reference Range Interpretation Comments Urine Specific Shedd (test code = 5811-5) 1.015 1.010-1.02 5 [facility] CenterUrine iF4889-68-71 11:40:00* Test Item Value Reference Range Interpretation Comments Urine pH (test code = 83494-3) 7 5-7 [facility] CenterUrine Leukocyte Izuddvgp0018-16-20 11:40:00* Test Item Value Reference Range Interpretation Comments Urine Leukocyte Esterase (test code = 5799-2) 2+ NEGATIVE H [facility] CenterUrine Lnovjtz3232-17-78 11:40:00* Test Item Value Reference Range Interpretation Comments Urine Nitrite (test code = 38923-5) POSITIVE NEGATIVE H [facility] CenterUrine Dysfvrs1221-31-74 11:40:00* Test Item Value Reference Range Interpretation Comments Urine Protein (test code = 5804-0) 2+ NEGATIVE H [facility] Glucose (UA)2018-07-04 11:40:00* Test Item Value Reference Range Interpretation Comments Urine Glucose (UA) (test code = 2349-9) NEGATIVE NEGATIVE [facility] Vuouunc4987-98-10 11:40:00* Test Item Value Reference Range Interpretation Comments Urine Ketones (test code = 86879-8) NEGATIVE NEGATIVE [facility] Bdlerjpnjwsi1806-41-88 11:40:00* Test Item Value Reference Range Interpretation Comments Urine Urobilinogen (test code = 33645-8) 0.2 0.2-1 [facility] Ticqyhwnd5563-47-17 11:40:00* Test Item Value Reference Range Interpretation Comments Urine Bilirubin (test code = 1978-6) NEGATIVE NEGATIVE [facility] Bvbqj7198-40-19 11:40:00* Test Item Value Reference Range Interpretation Comments Urine Blood (test code = 29613-8) 2+ NEGATIVE H [facility] Emea0468-23-89 11:40:00* Test Item Value Reference Range Interpretation Comments Urine Test (test code = 2106-3) NEGATIVE NEGATIVE [facility] Qlkmpaq8862-90-80 05:44:00* Test Item Value Reference Range Interpretation Comments Urine Culture (test code = 630-4) Organism: STAPHYLOCOCCUS EPIDERMI DIS [facility] CenterUrine Byafedq9566-38-80 05:44:00* Test Item Value Reference Range Interpretation Comments Urine Culture (test code = 630-4) Organism: STAPHYLOCOCCUS EPIDERMI DIS [facility] CenterBlood Toukbrd4047-64-37 22:12:00* Test Item Value Reference Range Interpretation Comments Blood Culture (test code = 31299764) NO GROWTH AFTER 48 HOURS [facility] CenterVancomycin Level Plxgom7637-17-14 04:44:00* Test Item Value Reference Range Interpretation Comments Vancomycin Level Trough (test code = 4092-3) 5.9 5.0-10.0 [facility] 2 LMFVB2429-27-87 09:06:00 [facility] [address] [place] [address] Patient Name: LISA WEAVER MR #: [id number] : 1995 Age/Sex: 23/F Req #: [id number] Adm Physician: CORBY CUENCA MD Ordered by: ELYSE DOLAN MD Report #: [id number] Location: [facility] Room/Bed: [place] [address] Procedure: [id number] DX/CHEST 2 VIEWS Exam Date: 04/18/18 Exam Time: 1640 REPORT STATUS: Signed PROCEDURE: X-RAY CHEST, TWO VIEWS COMPARISON: 05/09/2017. INDICATIONS: FEVER, NAUSEA/ VOMITING FINDINGS: Lung volumes are low without focal consolidation, p leural effusion, or pneumothorax. Cardiomediastinal contour and pulmonary vas culature are within normal limits. No acute osseous abnormality. Right i nternal ureteral stent is partially visualized on the lateral radiograph. CONCLUSION: Low lung volumes without acute cardiopulmonary abnormality.. Dictated by: Marisabel Rivera M.D. on 04/19/2018 at 9:06 Electron ically approved by: Marisabel Rivera M.D. on 04/19/2018 at 9:06 Dicta reji By: MARISABEL RIVERA MD 5 Transcribed By: ABIEL on 04/19/18905 COPY TO: ELYSE DOLAN MD Sodium Fyozb0160-19-79 06:12:00* Test Item Value Reference Range Interpretation Comments Sodium Level (test code = 2951-2) 140 136-145 [facility] CenterPotassium Xvska2577-01-07 06:12:00* Test Item Value Reference Range Interpretation Comments Potassium Level (test code = 2823-3) 3.5 3.5-5.1 [facility] CenterChloride Ikpgw2461-59-18 06:12:00* Test Item Value Reference Range Interpretation Comments Chloride Level (test code = 2075-0) 109 98-107 H [facility] CenterCarbon Dioxide Bmjic0102-77-50 06:12:00* Test Item Value Reference Range Interpretation Comments Carbon Dioxide Level (test code = 2028-9) 16 22-29 L [facility] CenterAnion Amw0068-02-88 06:12:00* Test Item Value Reference Range Interpretation Comments Anion Gap (test code = 26054-1) 18.5 8-16 H [facility] CenterBlood Urea Rlfjclty7122-18-37 06:12:00* Test Item Value Reference Range Interpretation Comments Blood Urea Nitrogen (test code = 3094-0) 8 7-26 [facility] CenterCreatinine2018-11-27 06:12:00* Test Item Value Reference Range Interpretation Comments Creatinine (test code = 2160-0) 0.78 0.57-1.11 [facility] CenterBUN/Creatinine Bbmoh5196-04-24 06:12:00* Test Item Value Reference Range Interpretation Comments BUN/Creatinine Ratio (test code = 3097-3) 10 6-25 [facility] CenterEstimat Glomerular Filtration Rate 2018-04-19 06:12:00* Test Item Value Reference Range Interpretation Comments Estimat Glomerular Filtration Rate (test code = 938909847) > 60 >60 Ranges were taken from the National Kidney Disease Education Program and the [facility] Foundation literature.Reference ranges:60 or greater: Avjaqf08-80 ( for 3 consecutive months): Chronic kidney disease 15 or less: Kidney failureChildress Regional Medical CenterGlucose Mpxwy4239-50-67 06:12:00* Test Item Value Reference Range Interpretation Comments Glucose Level (test code = ZOV6249) 109 74-118 [facility] CenterCalcium Fwvrj0023-57-80 06:12:00* Test Item Value Reference Range Interpretation Comments Calcium Level (test code = 93849-5) 8.0 8.4-10.2 L [facility] CenterTotal Rbpbcipek2698-72-52 06:12:00* Test Item Value Reference Range Interpretation Comments Total Bilirubin (test code = 1975-2) 0.2 0.2-1.2 [facility] CenterAspartate Amino Transf (AST/SGOT) 2018-04-19 06:12:00* Test Item Value Reference Range Interpretation Comments Aspartate Amino Transf (AST/SGOT) (test code = Aspartate Amino Transf (AST/SGOT)) 10 5-34 [facility] CenterAlanine Aminotransferase (ALT/SGPT) 2018-04-19 06:12:00* Test Item Value Reference Range Interpretation Comments Alanine Aminotransferase (ALT/SGPT) (test code = 1742-6) 13 0-55 [facility] CenterTotal Fhscivm5845-39-02 06:12:00* Test Item Value Reference Range Interpretation Comments Total Protein (test code = 2885-2) 6.3 6.5-8.1 L [facility] CenterAlbumin2018-11-27 06:12:00* Test Item Value Reference Range Interpretation Comments Albumin (test code = 1751-7) 2.4 3.5-5.0 L [facility] CenterGlobulin2018-11-27 06:12:00* Test Item Value Reference Range Interpretation Comments Globulin (test code = 88256-0) 3.9 2.3-3.5 H [facility] CenterAlbumin/Globulin Lyjif8978-37-18 06:12:00 * Test Item Value Reference Range Interpretation Comments Albumin/Globulin Ratio (test code = 1759-0) 0.6 0.8-2.0 L [facility] CenterAlkaline Nqtxgruiuch5634-31-11 06:12:00* Test Item Value Reference Range Interpretation Comments Alkaline Phosphatase (test code = 6768-6) 58 40-150 [facility] CenterWhite Blood Mudbb8601-64-38 05:49:00* Test Item Value Reference Range Interpretation Comments White Blood Count (test code = 6690-2) 11.36 4.8-10.8 H [facility] CenterRed Blood Ahble8049-69-01 05:49:00* Test Item Value Reference Range Interpretation Comments Red Blood Count (test code = 789-8) 3.74 3.6-5.1 [facility] CenterHemoglobin2018-11-27 05:49:00* Test Item Value Reference Range Interpretation Comments Hemoglobin (test code = 13634-5) 10.0 12.0-16.0 L [facility] CenterHematocrit2018-11-27 05:49:00* Test Item Value Reference Range Interpretation Comments Hematocrit (test code = 4544-3) 32.0 34.2-44.1 L [facility] CenterMean Corpuscular Oypzjo1667-45-25 05:49:00* Test Item Value Reference Range Interpretation Comments Mean Corpuscular Volume (test code = 787-2) 85.6 81-99 [facility] CenterMean Corpuscular Qpyzmnsfcj2881-58-04 05:49:00* Test Item Value Reference Range Interpretation Comments Mean Corpuscular Hemoglobin (test code = 785-6) 26.7 28-32 L [facility] CenterMean Corpuscular Hemoglobin Concent 2018-04-19 05:49:00* Test Item Value Reference Range Interpretation Comments Mean Corpuscular Hemoglobin Concent (test code = 786-4) 31.3 31-35 [facility] CenterRed Cell Distribution Hvshh0473-11-91 05:49:00* Test Item Value Reference Range Interpretation Comments Red Cell Distribution Width (test code = 46527-1) 13.3 11.7 -14.4 [facility] CenterPlatelet Yhazb3646-87-59 05:49:00* Test Item Value Reference Range Interpretation Comments Platelet Count (test code = 777-3) 185 140-360 [facility] CenterNeutrophils (%) (Auto)2018-04-19 05:49:00 * Test Item Value Reference Range Interpretation Comments Neutrophils (%) (Auto) (test code = 50947-5) 84.5 38.7-80.0 H [facility] CenterLymphocytes (%) (Auto)2018-04-19 05:49:00 * Test Item Value Reference Range Interpretation Comments Lymphocytes (%) (Auto) (test code = 736-9) 7.6 18.0-39.1 L [facility] CenterMonocytes (%) (Auto)2018-04-19 05:49:00* Test Item Value Reference Range Interpretation Comments Monocytes (%) (Auto) (test code = 5905-5) 7.0 4.4-11.3 [facility] (Auto)2018-04-19 05:49:00 * Test Item Value Reference Range Interpretation Comments Eosinophils (%) (Auto) (test code = 713-8) 0.3 0.0-6.0 [facility] (%) (Auto)2018-04-19 05:49:00* Test Item Value Reference Range Interpretation Comments Basophils (%) (Auto) (test code = 706-2) 0.2 0.0-1.0 [facility] CenterIM [facility]ULOCYTES %2018-04-19 05:49:00* Test Item Value Reference Range Interpretation Comments IM GRANULOCYTES % (test code = IM GRANULOCYTES %) 0.4 0.0- 1.0 [facility] CenterNeutrophils # (Auto)2018-04-19 05:49:00* Test Item Value Reference Range Interpretation Comments Neutrophils # (Auto) (test code = 751-8) 9.6 2.1-6.9 H [facility] CenterLymphocytes # (Auto)2018-04-19 05:49:00* Test Item Value Reference Range Interpretation Comments Lymphocytes # (Auto) (test code = 89576-8) 0.9 1.0-3.2 L [facility] CenterMonocytes # (Auto)2018-04-19 05:49:00* Test Item Value Reference Range Interpretation Comments Monocytes # (Auto) (test code = 742-7) 0.8 0.2-0.8 [facility] CenterEosinophils # (Auto)2018-04-19 05:49:00* Test Item Value Reference Range Interpretation Comments Eosinophils # (Auto) (test code = 711-2) 0.0 0.0-0.4 [facility] # (Auto)2018-04-19 05:49:00* Test Item Value Reference Range Interpretation Comments Basophils # (Auto) (test code = 704-7) 0.0 0.0-0.1 [facility] CenterAbsolute Immature Granulocyte (auto 2018-04-19 05:49:00* Test Item Value Reference Range Interpretation Comments Absolute Immature Granulocyte (auto (guillermina t code = Absolute Immature Granulocyte (auto) 0.05 0-0.1 [facility] CenterCT [facility]PELVIS [id number] 17:17:00 [place] [address] Patient Name: LISA WEAVER MR #: [id number] : 1995 Age/Sex: 23/F Req #: [id number] Adm Physician: Ordered by: JONY PORTILLO [employer]NALYST Report #: [id number] Location: ER Room/Bed: Procedure: [id number] CT/CT ABDOMEN/PELVIS W Exam Date: 04/18/18 Exam Herb e: 1640 REPORT STATUS: Signed EX AM: CT Abdomen and Pelvis WITH contrast INDICATION: lower abdominal pain [id number] Y COMPARISON: None. TECHNIQUE: Abdomen and pel vis were scanned utilizing a multidetector helical scanner from the lung base to the pubic symphysis after administration of IV contrast. Coronal and sagitt al reformations were obtained. Dose modulation, iterative reconstruction, and/ or weight based adjustment of the mA/kV was utilized to reduce the radiation d ose to as low as reasonably achievable. Routine protocol was performed. Scan w as performed when during portal venous phase. IV CONTRAST: 100 mL o f Isovue-370 ORAL CONTRAST: Water COMPLICATIONS: None RADIATION DOSE: Total DLP: 713.45 mGy*cm Estimated effective do se: (DLP x 0.015 x size factor) mSv CTDIvol has been reviewed. It is belo w the limits set by the Radiation Protocol Committee (RPC). FINDINGS: LINES and TUBES: Right nephroureteral stent. LOWER THORAX: Unremarkable HEPATOBILIARY: No focal hepatic lesions. No biliary ductal dilation. GALLBLADDER: No radio-opaque stones or sludge. No wall thickening. SP JE: No splenomegaly. PANCREAS: No focal masses or ductal dilatation. ADRENALS: No adrenal nodules KIDNEYS/URETERS: Right nephroureteral stent in place. Cluster of right renal inferior pole calculi, overall measurin g 1.4 cm (series 301, image 68). Additional right inferior pole renal calculus measuring 0.9 cm. Proximal right ureteral 1 cm calculus. Left inferior pole 0 .3 cm calculus. Mild to moderate bilateral hydroureteronephrosis. There is mil d right perinephric fat stranding and a striated nephrogram. Bilateral corti john hypodensities which are too small to characterize. GI TRACT: No abnorma l distention, wall thickening, or evidence of bowel obstruction. Appendi x is normal. PELVIC ORGANS/BLADDER: Unremarkable. LYMPH NODES: 1.3 cm aortocaval lymph node (series 2, image 48). Otherwise, no lymphadenopathy. VESSELS: Unremarkable. PERITONEUM / RETROPERITONEUM: No free air or fluid. BONES: Unremarkable. SOFT TISSUES: Unremarkable. IM PRESSION: 1. Right nephroureteral stent in place. Bilateral mild to moderate hydroureteronephrosis. 2. Bilateral renal calculi, right more than left, w ith addition of 1 cm right proximal ureteral calculus. 3. Striated right ne phrogram with mild right perinephric fat stranding, concerning for pyelonephri tis. Signed by: Dr. Neeraj Rick MD on 04/18/2018 5:27 PM Dictated By: NEERAJ RICK MD 17 Transcribed By: PARRIS on 04/18/18 1727 COPY TO: JONY PORTILLO NP Influenza Virus Types A,B [id number] 12:11:00* Test Item Value Reference Range Interpretation Comments Influenza Virus Types A,B Antigen (test code = 85532-4) NEGATIVE NEGATIVE [facility] CenterInfluenza Virus Types A,B Antigen 2018-04-18 12:11:00* Test Item Value Reference Range Interpretation Comments Influenza Virus Types A,B Antigen (test code = 63608-9) NEGATIVE NEGATIVE [facility] CenterUrine [id number] 12:08:00* Test Item Value Reference Range Interpretation Comments Urine WBC (test code = 5821-4) 6-10 0-5 H [facility] CenterU[facility] [id number] 12:08:00* Test Item Value Reference Range Interpretation Comments Urine RBC (test code = 47014-6) 11-20 0-5 H [facility] CenterU[facility] Olxlgxht9182-30-06 12:08:00* Test Item Value Reference Range Interpretation Comments Urine Bacteria (test code = 40590-9) FEW NONE [facility] CenterUrine Epithelial Mbjof6001-98-33 12:08:00 * Test Item Value Reference Range Interpretation Comments Urine Epithelial Cells (test code = 90589-2) FEW NONE [facility] CenterGroup A Streptococcus [id number] 12:05:00* Test Item Value Reference Range Interpretation Comments Group A Streptococcus Screen (test code = 92627-8) NEGATIVE NEG ATIVE [facility] CenterGroup A Streptococcus [id number] 12:05:00* Test Item Value Reference Range Interpretation Comments Group A Streptococcus Screen (test code = 93252-4) NEGATIVE NEG ATIVE [facility] CenterLactic Acid Yzhdi6933-87-19 12:00:00* Test Item Value Reference Range Interpretation Comments Lactic Acid Level (test code = Lactic Acid Level) 7.7 4.5- 19.8 [facility] CenterHuman Chorionic Gonadotropin, Qual 2018-04-18 12:00:00* Test Item Value Reference Range Interpretation Comments Human Chorionic Gonadotropin, Qual (test code = 2118-8) NEGATIVE NEGATIVE [facility] CenterLactic Acid Ptnpz9215-30-41 12:00:00* Test Item Value Reference Range Interpretation Comments Lactic Acid Level (test code = Lactic Acid Level) 7.7 4.5- 19.8 [facility] CenterHuman Chorionic Gonadotropin, Qual 2018-04-18 12:00:00* Test Item Value Reference Range Interpretation Comments Human Chorionic Gonadotropin, Qual (test code = 2118-8) NEGATIVE NEGATIVE [facility] CenterUrine [id number] 11:56:00* Test Item Value Reference Range Interpretation Comments Urine Color (test code = 5778-6) YELLOW YELLOW [facility] CenterU[facility] Plfpumy5223-06-36 11:56:00* Test Item Value Reference Range Interpretation Comments Urine Clarity (test code = 06820-1) CLOUDY CLEAR H [facility] CenterUrine Specific Cwqsudt6316-08-51 11:56:00 * Test Item Value Reference Range Interpretation Comments Urine Specific Shedd (test code = 5811-5) 1.015 1.010-1.02 5 [facility] CenterU[facility] [id number] 11:56:00* Test Item Value Reference Range Interpretation Comments Urine pH (test code = 46255-4) 6.5 5-7 [facility] Center[facility] Leukocyte Gwfpaoaq6351-92-04 11:56:00* Test Item Value Reference Range Interpretation Comments Urine Leukocyte Esterase (test code = 5799-2) 1+ NEGATIVE H [facility] CenterU[facility] Pmgwovl5331-41-77 11:56:00* Test Item Value Reference Range Interpretation Comments Urine Nitrite (test code = 67207-4) POSITIVE NEGATIVE H [facility] CenterU[facility] Qgvmlmi3715-30-56 11:56:00* Test Item Value Reference Range Interpretation Comments Urine Protein (test code = 5804-0) 1+ NEGATIVE H [facility] CenterUrine Glucose (UA)2018-04-18 11:56:00* Test Item Value Reference Range Interpretation Comments Urine Glucose (UA) (test code = 2349-9) NEGATIVE NEGATIVE [facility] CenterU[facility] Mguvfre0314-58-06 11:56:00* Test Item Value Reference Range Interpretation Comments Urine Ketones (test code = 67583-0) NEGATIVE NEGATIVE [facility] Hzlzfomzngod3963-64-68 11:56:00* Test Item Value Reference Range Interpretation Comments Urine Urobilinogen (test code = 66829-0) 0.2 0.2-1 [facility] Mdndyfjwk3382-68-00 11:56:00* Test Item Value Reference Range Interpretation Comments Urine Bilirubin (test code = 1978-6) NEGATIVE NEGATIVE [facility] Ntzgo9732-35-67 11:56:00* Test Item Value Reference Range Interpretation Comments Urine Blood (test code = 07627-2) 3+ NEGATIVE H [facility] CenterCHEST [facility] VIEWS [place] [address] Patient Name: LISA WEAVER MR #: [id number] : 1995 Age/Sex: 22/F Req #: [id number] Adm Physician: Ordered by: NICOL SÁNCHEZ MD Report #: [id number] Location: ER Room/Bed: Procedure: [id number] DX/CHEST 2 VIEWS Exam Date: 05/09/17 Exam Time: 2139 REPORT STATUS: Signed CHEST 2 VIEWS, Technique: CHEST 2 VIEWS Comparison: None Clinical history: Chest pain DISCUSSION: Unremarkable appearance of the heart, mediastinum, lungs and pleural spaces. IMPRESSION: No acute abnormality. Signed by: Dr Harini Vicente MD on 05/09/2017 10:06 PM Dictated By: HARINI VICENTE MD 2 206 Transcribed By: PARRIS on 05/09/178 COPY TO: NICOL SÁNCHEZ
[2020-02-29 21:40] LABS: BACTERIA,URINE MANY /HPF; EPITHELIAL CELLS,URINE FEW /LPF; TRANSITIONAL EPI CELLS,URINE MODERATE; WBC,URINE (MAN) 21-50 /HPF (0-5)
== END 2020-02-29 22:25 | disposition home or self-care (01) ==
LOC: ER 20:50
DX: O23.41 Unspecified infection of urinary tract in pregnancy, first trimester (principal); R50.9 Fever, unspecified; M54.5 Low back pain
CPT/HCPCS: 36415; 80053; 81001; 83605; 85025; 87040; 87086; 87186; 96365; 99283; J0696; J7030